=== PATIENT | male | born 1960 | race Caucasian/White ===

== ENCOUNTER 2017-02-06 10:43 | Day surgery (SDC) | payer BC, OTHER ==
[2017-01-25 08:03] VITALS: BMI 45.0
--- NOTE | 2017-01-25 08:43 | PAT Medication Instructions ---
Service Date Jan 25, 2017. Current Home Medication List Atenolol (Tenormin), 50 MG PO QAM Fluticasone Prop/Salmeterol (Advair Diskus 100/50 60 Dose), Unknown Dose INH BID Ibuprofen (Advil), 200-600 MG PO Q4H PRN for Pain Medication Instructions For Your Scheduled Surgery - Check with surgeon for instructions: Ibuprofen (Advil), 200-600 MG PO Q4H PRN for Pain - Take the following medications the morning of surgery with a sip of water: Atenolol (Tenormin), 50 MG PO QAM Fluticasone Prop/Salmeterol (Advair Diskus 100/50 60 Dose), Unknown Dose INH BID - Take the following medications as scheduled the night before surgery: Atenolol (Tenormin), 50 MG PO QAM Fluticasone Prop/Salmeterol (Advair Diskus 100/50 60 Dose), Unknown Dose INH BID If you have any questions please call us at [phone] or [phone] or [phone]
--- NOTE | 2017-01-25 09:33 | DIAGNOSTIC IMAGING REPORT ---
CHEST 2 VIEWS ROUTINE CLINICAL HISTORY: PAT preoperative evaluation COMPARISON STUDY: 04/04/2014 FINDINGS: Moderate cardiomegaly. Increased pulmonary vasculature. Diaphragms are smooth. No focal infiltrate. Possible small nodular density versus calcified granuloma right base. IMPRESSION: 1. Cardiomegaly with findings suggesting early congestive failure versus pulmonary vascular congestion. Possible small nodular density right lung base. The above report was generated using voice recognition software. It may contain grammatical, syntax or spelling errors. Electronically signed by: Khoi Feng M.D. 01/25/2017 9:32 AM Dictated Date/Time: 01/25/2017 9:31 AM
[2017-01-25 09:44] LABS: BASO % 0.6 %; BASO ABS # 0.05 K/uL (0-0.2); COMPLETE YES; EOS % 3.1 %; HEMATOCRIT 51.8 % (42-52); IG% 0.5 %; LYMPH % 21.9 %; LYMPH ABS # 1.94 K/uL (1.2-3.4); MEAN CELL VOLUME 95.7 fL (80-100); MEAN CORPUSCULAR HGB CONC 33.4 g/dl (32-36); MEAN PLATELET VOLUME 11.4 fL (7.4-10.4); NEUT % 67.9 %; PLATELET COUNT 134 K/uL (130-400); RED BLOOD COUNT 5.41 M/uL (4.7-6.1); WHITE BLOOD COUNT 8.85 K/uL (4.8-10.8)
[2017-01-25 09:48] LABS: URINE APPEARANCE CLEAR (CLEAR); URINE COLOR YELLOW; URINE PH 5.5 (4.5-7.5); URINE SPECIFIC GRAVITY 1.027 (1.000-1.030)
[2017-01-25 09:49] LABS: URINE BILIRUBIN NEG (NEG); URINE EPITHELIAL CELL AUTO >30 /lpf (0-5); URINE NITRITE NEG (NEG); UROBILINOGEN NEG (NEG)
[2017-01-25 09:52] LABS: MANUAL MICROSCOPIC REQUIRED? NO; REVIEW REQ? NO
[2017-01-25 09:56] LABS: INR 1.1 (0.9-1.1); PARTIAL THROMBOPLASTIN RATIO 1.1; PROTHROMBIN TIME (PATIENT) 11.4 SECONDS (9.0-12.0)
[2017-01-25 09:59] LABS: BUN/CREATININE RATIO 15.6 (10-20); CALCIUM 9.1 mg/dl (8.5-10.1); CREATININE 0.91 mg/dl (0.60-1.40); POTASSIUM 3.9 mmol/L (3.5-5.1)
[~2017-02-06] VITALS: Ht 188 cm; Wt 158.8 kg
--- NOTE | 2017-02-06 07:04 | History and Physical ---
History & Physical Date Feb 06, 2017. Chief Complaint Patient with carpal tunnel syndrome and right cubital tunnel syndrome presents for surgical decompression failing attempts at conservative management History of Present Illness The patient is a 56 year old male with complaints of numbness tingling or weakness right upper extremity nighttime pain pain with driving with carpal tunnel and cubital tunnel both documented the water severe EMG failed attempts at bracing rest injections anti-inflammatories relative rest and time presents for carpal tunnel tibial tunnel decompression Additional History Hepatic Disease: No Endocrine Disorder: No Kidney Disease: No Hypertension: Yes Heart Disease: No Bleeding Tendencies: No Infectious Diseases: No Allergies Coded Allergies: No Known Allergies (Verified , 01/25/17) Home Medications Scheduled Atenolol (Tenormin), 50 MG PO QAM Fluticasone Prop/Salmeterol (Advair Diskus 100/50 60 Dose), Unknown Dose INH BID Scheduled PRN Ibuprofen (Advil), 200-600 MG PO Q4H PRN for Pain Physical Examination Skin: warm/dry, no rash Eyes: normal inspection, EOMI, sclerae normal ENT: normal ENT inspection, pharynx normal Head: normocephalic, atraumatic Neck: supple, no adenopathy, trachea midline Respiratory/Chest: lungs clear, normal breath sounds, no respiratory distress Cardiovascular: regular rate, rhythm, no edema, no murmur Abdomen / GI: normal bowel sounds, non tender Back: normal inspection Extremities: + pertinent finding (healing wound right olecranon bursal excision ) Diagnosis Right carpal tunnel syndrome or cubital tunnel syndrome nonresponsive to conservative therapy Plan of Treatment Carpal tunnel decompression cubital tunnel decompression possible ulnar nerve transposition pending findings at surgery
--- NOTE | 2017-02-06 08:14 | History & Physical Bridge Note ---
H&P Re-Evaluation Bridge Note: I have examined the patient, reviewed the History & Physical and in the interval since the performance of the History & Physical I have noted the following changes of clinical significance: No changes noted
[~2017-02-06 10:43] MED LIST: ADVIN10/60 INH; ATEN50TA8 PO; ATROPINE SULFATE 0.1 MG/ML 5ML SYR IV PRN; CEFAZOLIN 3000 MG/65 ML D5W IV SCH; EpHEDrine SULFATE INJ 50 MG/ML AMP IV PRN; FENTANYL CITRATE INJ 50 MCG/1 ML 2 ML VIAL IV PRN; IBUP-1050 PO; LACTATED RINGER'S 1000ML 1,000 ML IV SCH; ONDANSETRON INJ 2 MG/ML 2 ML VIAL IV PRN
[2017-02-06 11:00] VITALS: BP 164/91; PULSE 62; TEMP 36.4; O2SAT 96; Ht 188 cm; Wt 158.8 kg
[2017-02-06] MEDS ORDERED: albuterol neb INH (11:27)
[2017-02-06] MEDS ORDERED: proair inhaler INH (11:27)
[2017-02-06] MEDS ORDERED: FENTANYL CITRATE INJ 50 MCG/1 ML 2 ML VIAL ONE ×2 (12:20→14:14)
[2017-02-06] MEDS ORDERED: MIDAZOLAM HCL 1 MG/ML 2ML VIAL ONE (12:20)
[2017-02-06] MEDS ORDERED: BUPIVACAINE/EPINEPHRINE 0.5% MPF 1:200,000 10 ML VIAL ONE (12:41)
[2017-02-06] MEDS ORDERED: SODIUM CHLORIDE 0.9% INJ 10 ML VIAL ONE ×2 (12:42→15:23)
[2017-02-06] MEDS ORDERED: DEXAMETHASONE SOD INJ 4 MG/ML VIAL ONE ×2 (12:42→15:23)
[2017-02-06] MEDS ORDERED: ALBUT/IPRATROP 3MG/0.5MG NEB 3 ML VIAL INH PRN (13:00)
[2017-02-06 13:17] VITALS: PULSE 56; O2SAT 91
[2017-02-06] MEDS ORDERED: BUPIVACAINE/EPINEPHRINE 0.5% MPF 1:200,000 30 ML VIAL ONE (13:21)
[2017-02-06] MEDS ORDERED: BUPIVACAINE 0.5 % 5 MG/1 ML PF 10ML VIAL ONE (13:29)
[2017-02-06] MEDS ORDERED: BUPIVACAINE 0.5 % 5 MG/1 ML MPF 30ML VIAL ONE (14:08)
[2017-02-06] MEDS ORDERED: LIDOCAINE HCL 1% 20 ML VIAL ONE ×2 (14:08→14:32)
[2017-02-06] MEDS ORDERED: HYDR-5688 PO (14:40)
[2017-02-06] MEDS ORDERED: SODIUM CHLORIDE 0.9% 1000ML 1,000 ML IV SCH (14:40)
[2017-02-06] MEDS ORDERED: ONDANSETRON INJ 2 MG/ML 2 ML VIAL IV PRN (14:45)
[2017-02-06] MEDS ORDERED: HYDROCODONE/ACETAMOPHEN 5/325MG TAB PO PRN ×2 (14:45)
--- NOTE | 2017-02-06 14:52 | Discharge Instructions ---
Discharge Instructions Date of Service Feb 06, 2017. Visit Reason for Visit: Right Wrist Carpal Tunnel Syndrome, Ulnar Nerve Le Discharge Discharge Diagnosis / Problem: Right carpal tunnel release, right ulnar nerve decompression Discharge Goals Goal(s): Decrease discomfort, Improve function, Increase independence Activity Recommendations Activity Limitations: as noted below Lifting Limitations: until after follow-up appointment (no greater than 2 pounds) Shower/Bathe: tomorrow, keep incision dry (keep dressings covered and dry) Anesthesia . Post Anesthesia Instructions: If you have had General Anesthesia or IV Sedation: * Do not drive today. * Resume driving when surgeon permits. * Do not make important decisions or sign legal documents today. * Call surgeon for: 1. Temperature elevations greater than 101 degrees F. 2. Uncontrollable pain. 3. Excessive bleeding. 4. Persistent nausea and vomiting. 5. Medication intolerance (nausea, vomiting or rash). * For nausea and vomiting use only clear liquids such as: tea, soda, bouillon until nausea subsides, then gradually increase diet as tolerated. * If you have any concerns or questions, call your surgeon's office. If physician is unavailable and it is an emergency, call 911 or go to the nearest emergency room. . Instructions / Follow-Up Instructions / Follow-Up The following are instructions to follow after minor hand/elbow surgery. ACTIVITY RECOMMENDATIONS: * Minimize activity until your first visit after surgery. * No excessive walking, jogging, sports or laboring. * Return to activity is individualized. Most patients are able to return to everyday activities within 2 weeks. * Return to sports or intensive labor usually occurs at 1-2 months. * DRIVING: Driving may be resumed when you feel you have adequate pain control and use of the hand. * BATHING: You may shower or sponge-bathe immediately after surgery. The dressing will need to be covered with a plastic bag or plastic wrap until the dressing is changed on the fourth or fifth day after surgery. Once the dressing has been changed on the fourth or fifth day after surgery, you may shower and get the incision wet. * Wash with regular soap and water. * Do not bathe (submerge the incision), soak, swim or use a hot tub until the incision is completely healed over with normal skin and the doctor has given the OK to proceed. * There is no need to apply any ointments, powders or salves to your incision. * Do not apply alcohol or hydrogen peroxide directly to the incision. Diluted peroxide (50:50 mixture with sterile saline) may be used to clean dried blood from around the incision area. WORK/SCHOOL: * You may return to sedentary work or school when you are feeling comfortable. This is usually 3-7 days after surgery. * Expect increased discomfort with increased activity. Continue to elevate and ice the hand as much as possible. DIET: * Resume previous diet. MEDICATIONS: * You will have a prescription for pain medication and an anti-inflammatory medication after surgery. Use the pain pills for severe pain and the anti-inflammatory for less severe pain. * Once the pain pills have run out, try to use the anti-inflammatory. If this is not effective then contact the office for assistance. * The pain medication may cause nausea, constipation and sleepiness. You should see how they affect you before driving or similar activity. * The anti-inflammatory may cause stomach upset and bleeding. If this occurs, let your doctor know immediately . * Take a stool softener like Colace or a stimulant like Senokot to prevent constipation. SPECIAL CARE INSTRUCTIONS: ICE: * Do not apply ice directly to the skin. * Use a thin dressing or stockinet between the skin and ice bag. The dressing in place after surgery will suffice. * Apply ice for 20-30 minutes and repeat every 2-4 hours. This is especially important for the first 3-7 days after surgery. * Once the pain improves, use ice as needed. ELEVATION: * Keep your hand/elbow elevated at or above the level of your heart as much as possible. * Expect some increased discomfort and swelling if you allow your hand to hang down for any length of time. DRESSING: * You may change your dressing 4-5 days after surgery. * You may then change your dressing daily with clean dry gauze or Band-aids and a soft wrap or stockinet. * Always wash your hands prior to touching the incision area. * Once the stitches are removed, you may leave the wound open to air or cover with a thin bandage. * There is no need to apply any ointments, powders or salves to your incision. * Expect some bloody drainage for the first few days after surgery. * Leave the tape strips in place (if present) for 5-7 days. * The initial dressing after surgery may become soaked with blood or fluid which is normal. You may reinforce your dressing with clean, dry gauze as needed. * For carpal tunnel you may begin moving your fingers and wrist immediately after surgery as tolerated. * Be careful to not overuse. * Once the sutures are removed, further range of motion exercises can be performed. * Hand incisions may be very sensitive for a few months after surgery so avoid excessive pressure on the incision. If necessary, use a padded weightlifters' glove. * You may massage the incision with skin cream to make it less sensitive and reduce scarring. * Hand strength usually returns with normal use. * If needed, squeezing a soft sponge or Play-dough may help. * Your doctor will recommend physical therapy if necessary. PROBLEMS/QUESTIONS: * If you have any problems such as severe pain, numbness, tingling or high fevers or if you have any questions, please contact the office at [phone]. * It is not uncommon to have some numbness and tingling after the surgery especially if you have had a nerve block done. This should gradually improve over the first 1- 2 days. If this persists longer or worsens then contact the office. FOLLOW UP VISIT: * If not already scheduled, please call the office at to schedule follow-up appointments for approximately 10-14 days after your surgery. Diet Recommendations Recommended Home Diet: resume previous diet Procedures Procedures Performed: Right Wrist Revision Carpal Tunnel Release; Right Elbow Cubital Tunnel Release Pending Studies Studies pending at discharge: no Medical Emergencies . Who to Call and When: Medical Emergencies: If at any time you feel your situation is an emergency, please call 911 immediately. . Non-Emergent Contact Non-Emergency issues call your: Primary Care Provider . . "Provider Documentation" section prepared by Khoi John. . [place] Drug Monitoring Program Search Results: patient reviewed within database, no issues identified
--- NOTE | 2017-02-06 15:02 | [facility] Operative Report ---
Operative Report Operative Date Feb 06, 2017. Pre-Operative Diagnosis Right Carpal Tunnel Syndrome and Right Cubital Tunnel Syndrome non responsive to conservative therapy Post-Operative Diagnosis Right Carpal Tunnel Syndrome and Right Cubital Tunnel Syndrome non responsive to conservative therapy Procedure(s) Performed Right Wrist Revision Carpal Tunnel Release; Right Elbow Cubital Tunnel Release Surgeon Dr. Cole Ma Rn Orthopedic Surgeon(s) none Estimated Blood Loss 4ML Findings Impression all nerve at the cubital tunnel compression median nerve at the carpal tunnel Specimens none per surgeon Dr. Cole Ma Complication(s) None Disposition Recovery Room / PACU Indications Compression of the nerve of the ulnar nerve cubital tunnel compression of the median nerve at the right carpal tunnel Description of Procedure After proper prepping and draping the right upper extremity a.m. incision was made over the region of the cubital tunnel right elbow approximately 7 cm in length secondary to subcutaneous tissue down to the region of the ulnar nerve was identified proximally 1 cm proximal to the medial epicondyle donor was decompressed with proximal distal a 4 cm a piece of intermuscular septum was removed sensitives prevent further compression of the nerve in the more proximal aspect of the distal arm the wound was removed socialist sterile saline solution the decompressed within be an area of approximately 1 cm the nerve traversed the cubital tunnel where there was a area of constriction fibrous scar tissue around the nerve which was decompressed in its entirety the nerve stable with flexion and extension of the elbow did not require transposition subsequently was left its normal anatomic position meticulous hemostasis obtained and maintained subsequently the carpal tunnel incision made over the region of the palmar flexion crease dissection carried out through the region of the subcutaneous tissues through the palmar fascia to the region of the transverse carpal ligament transcarpal ligament the nerve was immediately identified and more proximal aspect of incision nerve was decompressed both proximally dismisses no further compression along the nerve he was irrigated with copious left sterile saline solution meticulous hemostasis obtained and maintained the skin was closed for allowing sterile compressive dressing was placed as well as a UltraSling patient over stable condition operative report dictated by Anil. I attest to the content of the Intraoperative Record and any orders documented therein. Any exceptions are noted below.
[2017-02-06] MEDS ORDERED: PROPOFOL IV EMULSION 10 MG/ML 20 ML VIAL IV ONE (15:23)
[2017-02-06] MEDS ORDERED: ONDANSETRON INJ 2 MG/ML 2 ML VIAL ONE (15:23)
[2017-02-06] MEDS ORDERED: SUCCINYLCHOLINE CHLORIDE 20 MG/ML 10 ML VIAL IV ONE (15:23)
[2017-02-06] MEDS ORDERED: LABETALOL HCL IV 5 MG/ML 20ML IV ONE (15:23)
[2017-02-06] MEDS ORDERED: LIDOCAINE HCL 2% 2 ML VIAL (20MG/ML) ONE (15:23)
--- NOTE | 2017-02-06 15:56 | Anesthesiology Progress Note ---
Anesthesia Post Op Note Date & Time Feb 06, 2017 at 15:56 Vital Signs Pain Intensity: 3 Vital Signs Past 12 Hours Date Time Temp Pulse Resp B/P (MAP) Pulse Ox O2 Delivery O2 Flow Rate FiO2 02/06/17 15:47 67 22 91 02/06/17 15:47 69 22 02/06/17 15:46 157/95 02/06/17 15:42 66 16 94 02/06/17 15:42 66 16 02/06/17 15:41 169/80 02/06/17 15:39 36.6 65 19 140/73 (88) 96 Mask 3 02/06/17 15:37 65 20 96 02/06/17 15:37 64 20 02/06/17 15:36 164/81 02/06/17 15:32 64 7 02/06/17 15:32 64 7 95 02/06/17 15:31 63 18 02/06/17 15:31 61 18 140/73 95 02/06/17 15:26 68 21 146/82 94 02/06/17 15:26 65 21 02/06/17 15:21 66 20 02/06/17 15:21 63 20 148/78 94 02/06/17 15:16 70 15 02/06/17 15:16 68 15 147/73 91 02/06/17 15:12 159/77 02/06/17 15:11 71 02/06/17 15:11 36.2 70 16 159/77 (99) 95 Mask 15 02/06/17 15:11 71 89 02/06/17 13:17 56 14 91 Room Air 02/06/17 11:00 36.4 62 20 164/91 (115) 96 Room Air Notes Mental Status: alert / awake / arousable, participated in evaluation Pt Amnestic to Procedure: Yes Nausea / Vomiting: adequately controlled Pain: adequately controlled Airway Patency, RR, SpO2: stable & adequate BP & HR: stable & adequate Hydration State: stable & adequate Anesthetic Complications: no major complications apparent
[2017-02-06 16:00] VITALS: BP 148/73; PULSE 63; TEMP 37; O2SAT 92
[2017-02-06 16:35] VITALS: BP 149/78; PULSE 83; TEMP 37; O2SAT 91
== END 2017-02-06 17:00 | disposition home or self-care (01) ==
LOC: C.ACU 10:43
PROVIDERS: ATTEND Orthopaedic Surgery
DX: G56.01 Carpal tunnel syndrome, right upper limb (principal); G56.21 Lesion of ulnar nerve, right upper limb